=== PATIENT | male | born 1990 | race Native Hawaiian/Other Pacific Islander ===

== ENCOUNTER 2020-03-03 18:27 | Emergency (ER) | payer OTHER ==
[~2020-03-03] VITALS: Ht 180.3 cm; Wt 68.0 kg
[2020-03-03 18:27] VITALS: TEMP 98.9
[2020-03-03] MEDS ORDERED: SUBOXONE1 MI2 SL (18:39)
[2020-03-03 18:45] VITALS: BP 129/93
[2020-03-03 19:02] LABS: PLATELET COUNT 239 K/uL (142-355)
[2020-03-03 19:09] LABS: POTASSIUM 3.2 mmol/L (3.6-5.2)
== END 2020-03-03 19:29 | disposition home or self-care (01) ==
LOC: ED 18:34
PROVIDERS: Emergency Medicine
DX: T50.901A Poisoning by unspecified drugs, medicaments and biological substances, accidental (unintentional), initial encounter (principal); F19.10 Other psychoactive substance abuse, uncomplicated
CPT/HCPCS: 80053; 85027; 93005; 96360; 99284